=== PATIENT | female | born 1970 | race Caucasian/White ===

== ENCOUNTER 2023-12-14 13:46 | Outpatient (AMB) | payer BC, SELFPAY ==
--- NOTE | 2023-12-14 14:12 | A.OFFVIS_ITS ---
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 Patient reports that her right knee is worse than the left. Patient has tired and failed gel injections with minimal re lief. She expresses that she has done P.T and cortisone injections with no relief. Patient would like to discuss surgery and would like to start with her right knee. 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 While in the office today the patient confirms a history of trial and failure of cortisone injections, gel injections, and physical therapy. She states the gel injections gave her minimal relief for a short period of time. However, the cortisone injections and physical therapy gave her no relief. Patient reports she was working every other day and now works daily. This has caused an increase in her pain. She states she stands on her feet for most of her shift. She reports due to this issue she obtained a work note giving her permission to sit as often as needed. She states she can walk around 20 minutes, but this increases pain. She also reports struggling with stairs. She states she is no longer able to attend the gym due to pain in the bilateral knees. Patient has a history of cortisone injections in the right knee in 2019 and a left knee cortisone injection in 2020. Patient confirmed Bariatric surgery 1.5 years ago. She confirms losing 100 pounds since the procedure. Patient confirms being 5 foot 4 inches tall and weighing 225 pounds.BMI as of 12/14/2023 is 38.6. [facility] Social History (Updated 12/14/23 @ 14:17 by Slim Mendes) Alcohol intake: current Alcohol intake frequency: holidays/special occasions only Patient Tobacco Use Status: Former Tobacco user Current occupational status: employed Current occupation: [employer] Review of Systems Const All systems reviewed & are unremarkable except as noted in HPI and below Physical Exam Vital Signs: BMI result Body Mass Index 38.6 Const General: cooperative and no acute distress Orientation/consciousness: patient oriented x3 and Other orientation findings (oriented) Resp Effort & Inspection: normal respiratory effort and able to speak in complete sentences Cardio Rate: regular rate Peripheral pulses: Peripheral pulses 2+ throughout GI Palpation (GI): Soft to palpation Skin General skin exam: no rashes or lesions noted Lesions: no lesions Rashes: no rashes Neuro General: patient oriented x3 Extrem Other: Right knee: Normal to inspection. No ecchymosis, erythema, or joint effusion. No tenderness to palpation along the medial or lateral joint lines. Lacking 10 degrees of forward extension. Flexion to 90 degrees. Crepitus felt with ROM. NVI. Assessment & Plan Assessment & Plan (1) Osteoarthritis of right knee: Code(s): M17.11 - Unilateral primary osteoarthritis, right knee Category: Medical (2) Osteoarthritis of left knee: Code(s): M17.12 - Unilateral primary osteoarthritis, left knee Category: Medical Plan Ms. Suarez is a 53-year-old female who presents in the office today, as a new patient, for an evaluation of bilateral knee pain; with the right knee being worse than the left knee. While in the office today the patient confirms a history of trial and failure of cortisone injections, gel injections, and physical therapy. She states the gel injections gave her minimal relief for a short period of time. However, the cortisone injections and physical therapy gave her no relief. Patient reports she was working every other day and now works daily. This has caused an increase in her pain. She states she stands on her feet for most of her shift. She reports due to this issue she obtained a work note giving her permission to sit as often as needed. She states she can walk around 20 minutes, but this increases pain. She also reports struggling with stairs. She states she is no longer able to attend the gym due to pain in the bilateral knees. Patient has a history of cortisone injections in the right knee in 2019 and a left knee cortisone injection in 2020. Patient confirmed Bariatric surgery 1.5 years ago. She confirms losing 100 pounds since the procedure. Patient confirms being 5 foot 4 inches tall and weighing 225 pounds. BMI as of 12/14/[address] Freeman was available to see the patient with me and a collaborative treatment plan was made. It was discussed and recommended for the patient to undergo a right total knee arthroplasty. We discussed in detail the procedure and what to expect pre and post operatively. We discussed the risks, benefits and alternatives to the surgery and the rehabilitation course. The risks include infection, bleeding, nerve injury, ongoing pain, swelling, and stiffness, perioperative risk of injury to bones and soft tissues, and blood clots. The patient?s information was given to the Nurse Navigator. Follow up will be with the Nurse Navigator for further surgical planning and clearance, or sooner if needed. X-rays of the right knee which were obtained while in the office today and were reviewed by me, Sona Espinoza PA-C, revealed osteoarthritis. X-rays of the right knee, obtained 01/30/2022, revealed: Moderate to severe osteoarthritic changes in the right knee, with severe joint space narrowing of the medial joint compartment with slight subchondral sclerosis and cortical irregularity, worse as comparted to the prior study from 2020. MRI of the left knee, obtained on 01/30/2022, revealed: 1. Tricompartmental osteoarthritis advanced in the medial tibiofemoral compartment. Associated subchondral bony edema. 2.Complex degenerative tear posterior two thirds of the medial meniscus with [id number] appearance of the discal body. 3. Small partially ruptured Jalloh?s cyst 4. Small-volume pes anserine bursitis. X-rays of the left knee, obtained on 05/14/2021, revealed: Mild arthritic changes, but no acute fracture or dislocation. Orders: Orders XR knee RT 3V 12/14/23 M25.569 - Pain in unspecified knee Patient Instructions: Scribed by Carole Olemdo medical delivery technician, for Sona Espinoza PA-C on 12/14/2023 at 02:30 p.m. EST. Corrections were made by Beatris Felton medical delivery technician, on 12/14/2023 at 5:37pm, EST. Coding Level of Care Code New Pt Level 4 (22159) Diagnoses Osteoarthritis of right knee M17.11 Osteoarthritis of left knee M17.12
[2023-12-14 14:17] VITALS: BMI 38.6
== END 2023-12-14 15:31 | disposition home or self-care (01) ==
PROVIDERS: Visit Provider Physician Assistant
DX: M17.0 Bilateral primary osteoarthritis of knee (principal)
CPT/HCPCS: 99204

== ENCOUNTER 2023-12-14 14:36 | Outpatient (REF) | payer BC, SELFPAY ==
--- NOTE | ~2023-12-14 | XR_ITS ---
EXAMINATION: XR BILATERALLY KNEES CLINICAL INFORMATION: Pain in unspecified knee. TECHNIQUE: AP standing, lateral and sunrise views of bilateral knees. COMPARISON: None available. FINDINGS: LEFT KNEE: Trace joint effusion. Vtnjrdlk-ij-pdypzw narrowing of the medial compartment with prominent medial marginal osteophytes. Small lateral posterior patellar osteophytes. RIGHT KNEE: Trace joint effusion. Ygrfmhkq-cv-hzqeua narrowing of the medial compartment with prominent medial marginal osteophytes. Degenerative changes with posterior hypertrophic change in the right patellofemoral compartment. XR/XR knee LT 3V IMPRESSION: Ldzlignc-gw-vtdzaq degenerative changes bilateral knees.
--- NOTE | ~2023-12-14 | XR_ITS ---
EXAMINATION: XR BILATERALLY KNEES CLINICAL INFORMATION: Pain in unspecified knee. TECHNIQUE: AP standing, lateral and sunrise views of bilateral knees. COMPARISON: None available. FINDINGS: LEFT KNEE: Trace joint effusion. Aanmgchr-qd-bythtc narrowing of the medial compartment with prominent medial marginal osteophytes. Small lateral posterior patellar osteophytes. RIGHT KNEE: Trace joint effusion. Qcrqbjtl-vi-vxxlup narrowing of the medial compartment with prominent medial marginal osteophytes. Degenerative changes with posterior hypertrophic change in the right patellofemoral compartment. XR/XR knee RT 3V IMPRESSION: Eklrmsmq-ji-hoaeln degenerative changes bilateral knees.
== END 2023-12-14 14:37 | disposition home or self-care (01) ==
LOC: HO.HOSX 14:36
PROVIDERS: Visit Provider Physician Assistant
DX: M25.561 Pain in right knee (principal); M25.562 Pain in left knee
CPT/HCPCS: 73562

== ENCOUNTER → 2024-04-25 08:42 | Outpatient (BNVA) | payer BC, SELFPAY | DX: Z01.818 Encounter for other preprocedural examination (principal) ==

== ENCOUNTER 2024-04-28 13:37 | Outpatient (REF) | payer BC, SELFPAY ==
[2024-04-28 13:55] LABS: MANUAL DIFF FLAG NO
[2024-04-28 14:11] LABS: Basophils Absolute Auto 0.1 X10*3/uL (0.0-0.2); Basophils Percent Auto 0.6 % (0-2); Eosinophils Absolute Auto 0.3 X10*3/uL (0.0-0.4); Eosinophils Percent Auto 4.1 % (0-4); Hemoglobin 13.4 g/dl (12.0-16.0); Imm Gran Abs Auto 0.02 X10*3/uL (0.00-0.03); Imm Gran Pct Auto 0.2 % (0.0-0.4); Lymphocytes Absolute Auto 1.7 X10*3/uL (1.2-4.9); Lymphocytes Percent Auto 20.9 % (20-40); Mean Corpuscular HGB Conc 33.5 g/dl (31.0-35.0); Mean Corpuscular Hemoglobin 30.3 pg (27.0-33.0); Mean Corpuscular Volume 90.5 fL (80.0-98.0); Mean Platelet Volume 9.3 fL (9.4-12.3); Monocytes Absolute Auto 0.6 X10*3/uL (0.1-1.2); Monocytes Percent Auto 7.7 % (2-11); Neutrophils Absolute Auto 5.5 x10*3/uL (2.0-8.3); Neutrophils Percent Auto 66.5 % (45-73); Platelet Count 328 X10*3/uL (160-400); Red Blood Count 4.42 X10*6/uL (4.20-5.50); Red Cell Distribution Width 12.9 % (11.0-16.0); White Blood Count 8.3 X10*3/uL (4.8-10.8)
[2024-04-28 14:19] LABS: Estimated Average Glucose 100 mg/dL; Hemoglobin A1C 110.8537 umol/L; Hemoglobin A1c % 5.1 % (<6.0); Total Hemoglobin (HGBA1C) 3388.8152 umol/L
== END 2024-04-28 13:38 | disposition home or self-care (01) ==
LOC: HO.LAB 13:37
PROVIDERS: Visit Provider Hospitalist
DX: Z01.812 Encounter for preprocedural laboratory examination (principal); Z13.1 Encounter for screening for diabetes mellitus
CPT/HCPCS: 36415; 83036; 85025

== ENCOUNTER 2024-05-16 10:07 | Outpatient (REF) | payer BC, SELFPAY | END 2024-05-16 10:08 | disposition home or self-care (01) | LOC: HO.HOSX 10:07 | PROVIDERS: Visit Provider Physician Assistant | DX: Z13.89 Encounter for screening for other disorder (principal) ==

== ENCOUNTER → 2024-05-16 14:41 | Outpatient (BNV) | payer BC, SELFPAY | PROVIDERS: Visit Provider Internal Medicine Cardiovascular Disease | DX: R00.1 Bradycardia, unspecified (principal) | CPT/HCPCS: 93010 ==

== ENCOUNTER 2024-05-19 14:39 | Outpatient (REF) | payer BC, SELFPAY | END 2024-05-19 14:40 | disposition home or self-care (01) | LOC: HO.HOSX 14:39 | PROVIDERS: Visit Provider Physician Assistant | DX: M25.569 Pain in unspecified knee (principal) | CPT/HCPCS: 73560; 73562 ==

== ENCOUNTER 2024-05-19 14:39 | Outpatient (AMB) | payer BC, SELFPAY ==
--- NOTE | 2024-05-19 14:58 | A.OFFVIS_ITS ---
Intake Visit Reasons: Pre-Op: R TKA w/NE 05/25/24 Intake Note: Che is a 54 year old female who presents today for a pre op appointment for her Right TKA 05/25/24 NE. Pain management agreement reviewed and signed. Allergies gluten Allergy (Severe, Verified 05/19/24 14:59) Gastrointestinal Upset HPI HPI Pre-Op: R TKA w/NE 05/25/24: Details: 54-year-old female who presents in the office today for her preoperative history and physical exam prior to a right total knee arthroplasty to be performed on 05/25/[address] Freeman. The patient reports her pain is limiting her daily acti vities. She has tried and failed all conservative treatments. Therefore, she has elected to proceed with a right total knee arthroplasty. Patient has an allergy history, as follows: -Gluten; Gastrointestinal upset. Patient is currently taking, as follows: -Omeprazole magnesium 20 mg PO daily. Patient has a medical history, as follows: -Celiac disease. -GERD -LASHAE; not on CPAP. -History of postoperative nausea Patient has a surgical history, as follows: -Hx of colonoscopy. -Hx of foot surgery, bilateral bone spur in 1994. -Hx of ventral hernia repair; post op nausea in 2013. -Hx of bariatric surgery; gastric sleeve in 2021. Patient has a social history, as follows: -Tobacco: Former cigarette user. [facility] Medical History (Updated 05/16/24 @ 14:20 by Joycelyn Hess RN) Arthritis Celiac disease GERD (gastroesophageal reflux disease) LASHAE (obstructive sleep apnea) History of postoperative nausea Surgical History Hx of colonoscopy Hx of foot surgery (~1994) Hx of ventral hernia repair (~2013) Hx of bariatric surgery (~2021) Social History Household Members: Family Housing: House Are you a primary mall plant caretaker to a significant other at home: No Do you presently have visiting nurse or other home services: No Alcohol intake: current Alcohol intake frequency: holidays/special occasions only Patient Tobacco Use Status: Former Tobacco user Tobacco use type: Cigarette Current occupational status: employed Current occupation: [employer] Review of Systems Const All systems reviewed & are unremarkable except as noted in HPI and below Physical Exam Const General: cooperative, healthy appearing, comfortable, no acute distress, well developed, alert and awake Orientation/consciousness: patient oriented x3 HEENT Head: Yes normal to inspection, Yes normocephalic and Yes atraumatic Eyes General: appearance normal, both eyes and all related structures Neck Neck: Yes normal visual inspection and Yes no lymphadenopathy Resp Effort & Inspection: normal respiratory effort and able to speak in complete sentences Cardio Rate: regular rate Peripheral pulses: Peripheral pulses 2+ throughout GI Inspection: Yes normal to inspection Palpation (GI): Soft to palpation Skin General skin exam: no rashes or lesions noted Neuro General: patient oriented x3 Extrem Other: Right knee: Normal to inspection. No ecchymosis, erythema, or joint effusion. No tenderness to palpation along the medial or lateral joint lines. Lacking 10 degrees of forward extension. Flexion to 90 degrees. Crepitus felt with ROM. NVI. Psych Mental Status: mental status grossly normal Assessment & Plan Assessment & Plan (1) Osteoarthritis of right knee: Code(s): M17.11 - Unilateral primary osteoarthritis, right knee Category: Medical Plan Ms. Adolfo Suarez is a 54-year-old female who presents in the office today for her preoperative history and physical exam prior to a right total knee arthroplasty to be performed on 05/25/[address] Freeman. The patient reports her pain is limiting her daily activities. She has tried and failed all conservative treatments. Therefore, she has elected to proceed with a right total knee arthroplasty. Patient has an allergy history, as follows: -Gluten; Gastrointestinal upset. Patient is currently taking, as follows: -Omeprazole magnesium 20 mg PO daily. Patient has a medical history, as follows: -Celiac disease. -GERD -LASHAE; not on CPAP. -History of postoperative nausea. Patient has a surgical history, as follows: -Hx of colonoscopy. -Hx of foot surgery, bilateral bone spur in 1994. -Hx of ventral hernia repair; post op nausea in 2013. -Hx of bariatric surgery; gastric sleeve in 2021. Patient has a social history, as follows: -Tobacco: Former cigarette user. I discussed in detail the procedure and what to expect pre and post operatively. We discussed the risks, benefits and alternatives to the surgery and the rehabilitation course. The risks include infection, bleeding, nerve injury, ongoing pain, swelling, and stiffness, perioperative risk of injury to bones and soft tissues, and blood clots. I have answered all questions and with their understanding they have consented to move forward with a right total knee arthroplasty to be performed on 05/25/[address] Freeman. We discussed the role of physical therapy postoperatively. The patient would like to attend an outpatient physical therapy office that is closer to her home. She was provided with a paper copy of the physical therapy prescription to go to any facility she wished to attend. She should plan on beginning outpatient therapy 2 weeks status post surgery. Follow up will be on 06/10/24, or sooner if needed. X-rays of the right knee, which were obtained while in the office today and were reviewed by , Sona Espinoza PA-C, revealed: preoperative films obtained. Orders: Orders XR knee LT 1V 05/19/24 Kamari Garcia PA-C M25.569 - Pain in unspecified knee XR knee RT 3V 05/19/24 Kamari Garcia PA-C M25.569 - Pain in unspecified knee PT Evaluation and Treatment 05/19/24 Sona Espinoza PA-C M17.11 - Unilateral primary osteoarthritis, right knee Patient Instructions: Scribed by Rosibel Gomez, emergency medical dispatcher, for Sona Espinoza PA-C on 05/19/24 at 3:20 pm EST. Coding Level of Care Code Global (30110) Diagnoses Osteoarthritis of right knee M17.11
== END 2024-05-19 15:20 | disposition home or self-care (01) ==
PROVIDERS: Visit Provider Physician Assistant
DX: M17.11 Unilateral primary osteoarthritis, right knee (principal)
CPT/HCPCS: 99024

== ENCOUNTER 2024-05-25 07:22 | Day surgery (SDC) | payer BC, SELFPAY ==
--- NOTE | 2024-05-16 | ECG_ITS ---
Test Reason : PREOP Blood Pressure : / mmHG Vent. Rate : 058 BPM Atrial Rate : 058 BPM P-R Int : 160 ms QRS Dur : 088 ms QT Int : 400 ms P-R-T Axes : 040 046 034 degrees QTc Int : 392 ms Sinus bradycardia Otherwise normal ECG No previous ECGs available Referred By: Naya Hicks Electronically Signed By:Jagdish Nix
[2024-05-16 14:05] VITALS: BP 142/88; PULSE 65; RESP 16; O2SAT 99; BMI 40.0
--- NOTE | 2024-05-16 14:25 | HO.ANESPROP2 ---
Documented by User: Naya Hicks NP 05/24/24 08:57 HPI - Anesthesia Eval Consult details Narrative: 54yo F for Right Knee Replacement Total, 05/25/24 No recent illness No CP/SOB with yard work, work at [employer] GERD: ppi controls LASHAE: no CPAP after 120lb weight loss in 2 years PONV: 1 x postop hernia (severe nausea only). Discussed low risk PONV with TKA PMFSH Active Problems Active Problems: All Active Problems Osteoarthritis of left knee (Acute) Osteoarthritis of right knee (Acute) Past Medical History Medical History (Updated 05/16/24 @ 14:20 by Joycelyn Hess, RN) Arthritis Celiac disease GERD (gastroesophageal reflux disease) LASHAE (obstructive sleep apnea) History of postoperative nausea Family History Family history of problems with anesthesia: No Surgical History Surgical History Hx of colonoscopy Hx of foot surgery (~1994) Hx of ventral hernia repair (~2013) Hx of bariatric surgery (~2021) History of Problems with Anesthesia: Yes (PONV) Social History Social History Household Members: Family Housing: House Are you a primary foster care worker to a significant other at home: No Do you presently have visiting nurse or other home services: No Alcohol intake: current Alcohol intake frequency: holidays/special occasions only Patient Tobacco Use Status: Former Tobacco user Tobacco use type: Cigarette Smoked in Last 30 Days: No Have you been hit, kicked, punched, or otherwise hurt by someone within the past year? If so, by whom?: No Are you DNR?: No Advance Directives: No Advance Directives Information Provided: Yes Advance Directives on File: No Recently lost weight without trying: No Nutrition Risks: No Nutritional Risk Current occupational status: employed Current occupation: [employer] Allergies Allergy/AdvReac Type Severity Reaction Status Date / Time gluten Allergy Severe Gastrointestinal Verified 05/25/24 08:14 Upset Home Medications ?Medication ?Instructions ?Recorded ?Confirmed ?Last Taken ?Type omeprazole magnesium 20 mg 20 mg PO DAILY 12/14/23 05/25/24 05/25/24 06:45 History tablet,delayed release (Prilosec OTC) Exam Height,Weight and Vital Signs: Height 5 ft 4 in Weight 105.7 kg Last Vital Signs Pulse 65 05/16/24 14:05 Resp 16 05/16/24 14:05 BP 142/88 H 05/16/24 14:05 Pulse Ox 99 05/16/24 14:05 O2 Del Method Room Air 05/16/24 14:05 Pertinent Lab Results Pertinent Lab Results: Laboratory Tests 04/28/24 13:55 WBC 8.3 Hgb 13.4 Hct 40.0 Plt Count 328 Hemoglobin A1c % 5.1 Lab Results 05/16/24 05/16/24 05/16/24 Range/Units 14:30 15:05 Unknown Sodium 141 (135-145) mmol/L Potassium 4.5 (3.3-5.1) mmol/L Chloride 107 (96-108) mmol/L Carbon Dioxide 27 (22-29) mmol/L Anion Gap 12 (12-20) BUN 27 H (9-16) mg/dL Creatinine 0.88 (0.5-1.4) mg/dL Estim Creat Clear Calc 84.6 Estimated GFR > 60 Random Glucose 104 (60-115) mg/dL Calcium 9.7 (8.4-10.2) mg/dL Nasal Screen MRSA (PCR) NEGATIVE (Negative) Nasal S. aureus Screen POSITIVE A (Negative) Nasal MRSA/S.aureus Interp SEE NOTE Blood Type O Positive Antibody Screen NEGATIVE Narrative Narrative: EKG 04/2024 Vent. Rate : 058 BPM Atrial Rate : 058 BPM P-R Int : 160 ms QRS Dur : 088 ms QT Int : 400 ms P-R-T Axes : 040 046 034 degrees QTc Int : 392 ms Sinus bradycardia Otherwise normal ECG No previous ECGs available Airway Mallampati Class: I TM Dist: >3cm Neck ROM: Full Loose/Missing/Broken Teeth: Yes (molar missing, molars crowned) Heart: RRR Lungs: CTAB Assessment and Plan Assessment Anesthesia Assessment: Anesthesia Plan Discussed and PAT Visit Final Anesthetic Review Family History of Problems with Anesthesia: No History of Problems with Anesthesia: Yes (PONV) Documented by User: Ailyn Sumner MD 05/25/24 08:36 [facility] Past Medical History Medical History (Updated 05/16/24 @ 14:20 by Joycelyn Hess RN) Arthritis Celiac disease GERD (gastroesophageal reflux disease) LASHAE (obstructive sleep apnea) History of postoperative nausea Surgical History Surgical History Hx of colonoscopy Hx of foot surgery (~1994) Hx of ventral hernia repair (~2013) Hx of bariatric surgery (~2021) Social History Social History Household Members: Family Housing: House Are you a primary foster care worker to a significant other at home: No Do you presently have visiting nurse or other home services: No Alcohol intake: current Alcohol intake frequency: holidays/special occasions only Patient Tobacco Use Status: Former Tobacco user Tobacco use type: Cigarette Smoked in Last 30 Days: No Have you been hit, kicked, punched, or otherwise hurt by someone within the past year? If so, by whom?: No Are you DNR?: No Advance Directives: No Advance Directives Information Provided: Yes Advance Directives on File: No Recently lost weight without trying: No Nutrition Risks: No Nutritional Risk Current occupational status: employed Current occupation: [employer] Allergies Allergy/AdvReac Type Severity Reaction Status Date / Time gluten Allergy Severe Gastrointestinal Verified 05/25/24 08:14 Upset Home Medications ?Medication ?Instructions ?Recorded ?Confirmed ?Last Taken ?Type omeprazole magnesium 20 mg 20 mg PO DAILY 12/14/23 05/25/24 05/25/24 06:45 History tablet,delayed release (Prilosec OTC) Assessment and Plan Final Anesthetic Review NPO: Yes ASA Class: II Final Preanesthetic Review: No Changes in Pt Med Stat, Meds/Allgs Chart Reviewed and Consent Obtained/Reviewed Patient Risk: Intermediate Procedure Risk: Intermediate Anesthetic Plan Anesthetic Plan: Spinal Disposition: Standard PACU
[2024-05-16 16:14] LABS: MRSA Nasal PCR NEGATIVE (Negative); SA Nasal PCR POSITIVE (Negative)
[2024-05-16 16:42] LABS: Anion Gap 12 (12-20); Blood Urea Nitrogen 27 mg/dL (9-16); Calcium 9.7 mg/dL (8.4-10.2); Carbon Dioxide 27 mmol/L (22-29); Chloride 107 mmol/L (96-108); Creatinine Clr Calc Pharmacy 84.6; Estimated Glomerular Filt Rate > 60; Glucose Random 104 mg/dL (60-115); Potassium 4.5 mmol/L (3.3-5.1); Sodium 141 mmol/L (135-145)
[2024-05-25] VITALS (14 sets, daily range): BP systolic 105–141; BP diastolic 54–97; PULSE 51–73; RESP 14–20; TEMP 36.1–36.9; O2SAT 97–100; BMI 39.3; BMI 41.1
--- NOTE | ~2024-05-25 | XR_ITS ---
EXAMINATION: XR KNEE, RIGHT CLINICAL INFORMATION: Status post right total knee arthroplasty COMPARISON: X-rays of the right knee May 19, 2024 TECHNIQUE: Postop AP and crosstable lateral views of the right knee FINDINGS: There is a total knee arthroplasty in place. The components are in the usual position and are unchanged. There is no periprosthetic fracture There is some gas/air within the joint and surrounding soft tissues compatible with postoperative result. Skin tata are in place. XR/XR knee RT 2V IMPRESSION: Right total knee arthroplasty without complication by x-ray. Electronically signed by: Zeyad Gandhi MD 05/26/2024 09:19 AM EDT
[2024-05-25] MEDS: Lactated Ringers 1,000 ML 100 ML IVCONT ×2 (08:40→18:09)
[2024-05-25 09:03] LABS: Hematocrit 42.6 % (37.0-47.0)
--- NOTE | 2024-05-25 11:25 | MHC.SHP ---
Pre-Procedural Eval Section A - 24 Hr Update-Section A only Date of Service: 05/25/24 The patient is an INPATIENT: No Changes since office visit: No Cold of Flu in the past 2 weeks, No New Medical Problems, No Changes in Medication and No Patient answered all questions The patient has been examined within 24 hours of the surgical procedure. The History & Physical has been completed within 30 days and I have reviewed it.: Yes Section B - Complete if H&P > 30 days Chief Complaint: Unilateral primary osteoarthritis, right knee Allergies: Allergies Allergy/AdvReac Type Severity Reaction Status Date / Time gluten Allergy Severe Gastrointestinal Verified 05/25/24 08:14 Upset Plan I have reviewed the history and physical and performed a pertinent physical examination on my patient. No changes have occurred unless specified. Time Spent With Patient Time: Total time managing care of this patient today ____ minutes.
[2024-05-25] MEDS: ceFAZolin Sodium/Dextrose,Iso 2 GM/50 ML PIGGYBACK IV ×2 (11:50→18:07)
[2024-05-25] MEDS: Acetaminophen 1,000 MG/100 ML PIGGYBACK 400 MG IV (12:30)
--- NOTE | 2024-05-25 13:13 | PM.OP ---
Brief Operative Note Date of Service: 05/25/24 Pre-op diagnosis: right knee OA Post-op diagnosis: same Procedure: Right TKA Implants: Francesco Triathlon press fit cruciate retaining 09/28/11 Surgeon: Pepe Freeman MD Anesthesia: GETA and regional Was an Drill Rig Operator Helper used for this Procedure?: Yes Drill Rig Operator Helper: Sona Espinoza Estimated blood loss (mL): 50 Tourniquet time (min): 70 IV fluids (mL): 1,000 Pathology: other Condition: stable Disposition: PACU
--- NOTE | 2024-05-25 13:31 | PHA.MEDREC ---
Pharmacy Consult ? Medication Reconciliation Pharmacy has completed the medication reconciliation. Reviewed med rec done by nursing
[2024-05-25] MEDS: oxyCODONE HCl Immed Release 5 MG TABLET PO (17:05)
[2024-05-25] MEDS: HYDROmorphone HCl 0.5 MG/0.5 ML SYRINGE 0.25 MG IVPUSH (18:07)
[2024-05-25] MEDS: 0.9 % Sodium Chloride Flush 3 ML SYRINGE IVFLUSH (18:09)
[2024-05-25] MEDS: oxyCODONE HCl ER 10 MG TAB.ER.12H PO (20:48)
[2024-05-25] MEDS: Celecoxib 200 MG CAPSULE PO (20:48)
[2024-05-26 03:36] VITALS: BP 128/62; PULSE 68; RESP 18; TEMP 36.4; O2SAT 95
[2024-05-26] MEDS: Omeprazole 20 MG CAPSULE.DR PO (05:44)
[2024-05-26] MEDS: Lactated Ringers 1,000 ML 100 ML IVCONT (05:44)
[2024-05-26] MEDS: HYDROmorphone HCl 0.5 MG/0.5 ML SYRINGE 0.25 MG IVPUSH (05:44)
[2024-05-26 06:33] LABS: MANUAL DIFF FLAG NO
[2024-05-26 06:59] LABS: Anion Gap 13 (12-20); Blood Urea Nitrogen 19 mg/dL (9-16); Carbon Dioxide 26 mmol/L (22-29); Chloride 106 mmol/L (96-108); Creatinine Clr Calc Pharmacy 100.8; Estimated Glomerular Filt Rate > 60; Glucose Fasting 127 mg/dL (60-99); Potassium 4.7 mmol/L (3.3-5.1); Sodium 140 mmol/L (135-145)
[2024-05-26 07:07] LABS: Basophils Percent Auto 0.1 % (0-2); Eosinophils Percent Auto 0.1 % (0-4); Hematocrit 37.1 % (37.0-47.0); Hemoglobin 12.6 g/dl (12.0-16.0); Imm Gran Abs Auto 0.05 X10*3/uL (0.00-0.03); Imm Gran Pct Auto 0.5 % (0.0-0.4); Lymphocytes Percent Auto 9.6 % (20-40); Mean Corpuscular Hemoglobin 30.7 pg (27.0-33.0); Mean Corpuscular Volume 90.3 fL (80.0-98.0); Monocytes Absolute Auto 1.2 X10*3/uL (0.1-1.2); Monocytes Percent Auto 11.2 % (2-11); Neutrophils Absolute Auto 8.6 x10*3/uL (2.0-8.3); Neutrophils Percent Auto 78.5 % (45-73); Platelet Count 301 X10*3/uL (160-400); Red Blood Count 4.11 X10*6/uL (4.20-5.50); Red Cell Distribution Width 13.1 % (11.0-16.0); White Blood Count 10.9 X10*3/uL (4.8-10.8)
[2024-05-26 07:20] VITALS: BP 144/72; PULSE 64; RESP 14; TEMP 37.4; O2SAT 96
--- NOTE | 2024-05-26 08:15 | HO.POSTANES ---
Post Anesthesia Evaluation Post Anesthesia Evaluation Date of Service: 05/26/24 Vital Signs: Vital Signs Temp Pulse Resp BP Pulse Ox O2 Del Method 05/26/24 07:20 99.3 F 64 14 144/72 H 96 Room Air 05/26/24 03:36 97.6 F 68 18 128/62 95 Room Air Anesthesia: Spinal Mental Status: Awake Pain Control: Satisfactory Nausea/Vomiting: None Hydration: Adequate Anesthesia-Related Issues: No Anes. Related Issues
[2024-05-26] MEDS: Celecoxib 200 MG CAPSULE PO (08:21)
[2024-05-26] MEDS: oxyCODONE HCl ER 10 MG TAB.ER.12H PO (08:21)
[2024-05-26] MEDS: 0.9 % Sodium Chloride Flush 3 ML SYRINGE IVFLUSH (08:22)
--- NOTE | 2024-05-26 09:06 | P.DS_ITS ---
DS: Providers Provider Date of Service: 05/26/24 Primary care physician: Unknown Physician DS: Summary Hospital Course Hospital Course: The patient underwent a successful right total knee arthroplasty on 05/25/24, was transferred to PACU and then to the floor to recover. During their stay, their vitals were stable, afebrile at 12.6/37.1. Labs were unremarkable, H/H . POD 1 he was started on for DVT ppx, they also received Physical Therapy services twice a day. Physical therapy should include gait training, ROM to tolerance and quad strength. He is WBAT. Prior to discharge, his dressing was changed, incision clean dry and intact, new Aquacel dressing applied. The Aquacel dressing should remain intact and dry at all times. Any concerns with the dressing, please contact orthopedic office. No showering. The plan is to be discharged Time Attestation Discharge Coordination Time (in mins): 30 Quality: Safe Use of Opioids Does Pt have an Active Cancer Diagnosis on the Problem List?: No Quality: Stroke Does the patient have a stroke diagnosis?: No Physical Exam Vital Signs: Vital Signs: Last Vital Signs Temp 99.3 F 05/26/24 07:20 Pulse 64 05/26/24 07:20 Resp 14 05/26/24 07:20 BP 144/72 H 05/26/24 07:20 Pulse Ox 96 05/26/24 07:20 O2 Del Method Room Air 05/26/24 07:20 BMI result Body Mass Index 41.1 Const: General: cooperative and no acute distress Orientation/co nsciousness: patient oriented x3 Resp: Effort & Inspection: normal respiratory effort and able to speak in complete sentences Cardio: Peripheral pulses: Peripheral pulses 2+ throughout Neuro: General: patient oriented x3 Extrem: Other: incision clean dry and intact. Kenzie intact. No erythema or joint effusion. Calf supple nontender. Neurovascularly intact. DS: Data Data Completed and Pending Pending studies at discharge: Pending at discharge 05/25/24 12:35 Surgical [PTH] Routine Labs on day of discharge: Laboratory Results - last 24 hr 05/26/24 05:47 WBC 10.9 H RBC 4.11 L Hgb 12.6 Hct 37.1 MCV 90.3 MCH 30.7 MCHC 34.0 RDW 13.1 Plt Count 301 MPV 10.0 Immature Gran % (Auto) 0.5 H Neut % (Auto) 78.5 H Lymph % (Auto) 9.6 L [place] % (Auto) 11.2 H Eos % (Auto) 0.1 Baso % (Auto) 0.1 Lymph # (Auto) 1.0 L [place] # (Auto) 1.2 Eos # (Auto) 0.0 Baso # (Auto) 0.0 Abs Immat Gran (auto) 0.05 H Absolute Neuts (auto) 8.6 H Absolute Nucleated RBC 0.000 Nucleated RBC % (auto) 0.0 Sodium 140 Potassium 4.7 Chloride 106 Carbon Dioxide 26 Anion Gap 13 BUN 19 H Creatinine 0.75 Estim Creat Clear Calc 100.8 Estimated GFR > 60 Fasting Glucose 127 H Calcium 9.0 D Discharge Plan Discharge Patient Disposition: Home, Self-Care Referrals: oSna Espinoza PA-C [Physician [employer]ated [employer] Driver] - 2 Weeks (06/10/24 1:15 [facility] [place] Orthopedic Surgeons Sona Espinoza PA-C) Discharge Medications: New celecoxib 200 mg Capsule 200 mg PO BID 30 Days Qty: 60 0RF oxycodone 5 mg Tablet 5 mg PO Q4H PRN (Reason: Pain, Moderate(Pain Scale 4-6)) 7 Days Qty: 42 0RF Rx Instructions: Partial Fill upon patient request. acetaminophen 325 mg Tablet 650 mg PO Q6H PRN (Reason: Pain, Mild (Pain Scale 1-3), fever or headache) 30 Days Qty: 240 0RF enoxaparin 40 mg/0.4 mL Syringe 40 mg subcut Q24H 42 Days Qty: 16.8 0RF Continued (DME) walker Misc See Rx Instructions .ROUTE .MEDSUPPLY Qty: 1 0RF Rx Instructions: Folding front wheeled walker omeprazole magnesium [Prilosec OTC] 20 mg tablet,delayed release (DR/EC) 20 mg PO DAILY@0630 Discharge Orders: Discharge Order (Routine); Ordered 05/26/24 Ordered By: Kamari Garcia Diet: Regular diet Activity on Discharge: Use cane or walker Activity Restrictions/Additional Instructions: Physical Therapy for Total knee arthroplasty: WBAT, gait training, ROM 0-12, quad strength * Limit stair climbing * No showering, no tub bath-keep dressing clean, dry and intact * No driving x6 weeks * Continue lovenox once a day x 6 weeks * Follow up with [facility] Orthopedics in 2 weeks: Print Language: Citizen Of [place]
--- NOTE | 2024-05-26 09:16 | P.F2F_ITS ---
Service Date Service Date: 05/26/24 Encounter Date of encounter: 05/26/24 Reasons for Services Signs and symptoms assessed: Weakness, poor balance, poor gait mechanics Reason for physical therapy: home safety and mobility, therapeutic exercises, restore joint function, gait/transfer training, ADL training and energy conservation Overseeing Care: Pepe Freeman Homebound: Leaving the home is medically contraindicated at this time without the asist of a device and/or another person due th the listed conditions above and below. Reason homebound: unsteady gait / fall risk, pain with ambulation, poor balance / fall risk and unable to drive Homebound supporting statement: Pt. is considered home bound due to recent surgery. Unable to drive, poor balance, poor gait mechanics. Certification: Based on the above findings, I certify that this patient is confined to the home and needs intermittent half-way care, physical therapy and/or speech therapy, or continues to need occupational therapy. The patient is under my care, and I have initiated the establishment of the plan of care. The patient will be followed by a physician who will periodically review the plan of care. Time Spent With Patient Time: Total time managing care of this patient today ____ minutes.
[2024-05-26] MEDS: Enoxaparin Sodium 40 MG/0.4 ML SYRINGE SUBCUT (09:36)
--- NOTE | 2024-05-26 09:52 | MHC.CM.PN ---
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
--- NOTE | 2024-05-27 16:38 | W.PM.OPN ---
Operative Note Operative Note Date of Service: 05/25/24 Narrative: Date of Service: 05/25/24 Pre-op diagnosis: right knee OA Post-op diagnosis: same Procedure: Right TKA Implants: [place] Triathlon press fit cruciate retaining 09/28/1129 Surgeon: Pepe Freeman MD Anesthesia: GETA and regional Was an Medical Services Assistant used for this Procedure?: Yes Medical Services Assistant: Sona Espinoza Estimated blood loss (mL): 50 Tourniquet time (min): 70 IV fluids (mL): 1,000 Pathology: other Condition: stable Disposition: PACU Procedure in detail: The patient was brought to the operating room and prepped and draped in standard sterile fashion. A time-out was called to identify proper site proper procedure proper surgeon and IV antibiotics were administered. 1 g of IV tranexamic acid was administered. I began by making a midline incision to the retinaculum and performed a medial parapatellar arthrotomy. The patella was translated laterally and the knee was flexed up. The knee was eburnated tricompartmentally but most affected was the medial compartment.. I performed a small medial peel and resected the infrapatellar fat pad. Evan's line was then used to drill my intramedullary femoral guide and my distal femur cut of 10 mm was made in 5 degrees of valgus while protecting the soft tissues. I then measured a # 3 femur femur and placed my cutting guide and made my anterior posterior and chamfer cuts in 3 degrees of external rotation while protecting the soft tissues at all times. Once I was satisfied with my cuts I turned my attention to the tibia. I removed the meniscus medially and laterally and , using an external cutting guide, in line with the tibial crest and the third ray, I made my distal tibial cut in 3 deg slope of while protecting the PCL the posterior soft tissues at all times. An extension block was used to confirm appropriate amount of bony resection. I then sized a # 4 tibia and once I was satisfied that there was complete tibial coverage I placed my trial and with the trial femur in place took the knee through range of motion. I was satisfied with the extension and flexion as well as the stability and balance at 0, 30 and 90 degrees. I then turned my attention to the patella where I removed 1 cm from the undersurface of the patella and then trialed a 29 a patellar button. Again the knee was taken through range of motion I was satisfied with the tracking. I then returned to the femur and drilled my femoral lug holes and prepared the tibia. A femoral bone plug was placed and the knee was irrigated copiously. I then press fit the patella, tibia and femur in standard fashion. I trialed different inserts until I selected a # 12 CR insert. The final insert was placed and a 3 minutes iodine soak with local TXA was performed. A Werewolf cautery wand was used to maintain hemostasis over the capsule and meniscal beds, the gutters and peripatellar soft tissues. The knee was then closed with a running Quill suture, a 3 0 Vicryl and tata on the skin. Patient was then placed in sterile dressing and brought to recovery room in stable condition there were no known complications.
== END 2024-05-26 11:36 | disposition home or self-care (01) ==
LOC: HO.SSS 07:22 → HO.IMC 16:29 → HO.S3 19:13
PROVIDERS: Nurse Practitioner; Physician Assistant; PCP Internal Medicine; Visit Provider Orthopaedic Surgery
PROC: (CPT 27447; principal; 2024-05-25 10:00)
DX: M17.11 Unilateral primary osteoarthritis, right knee (principal); M25.561 Pain in right knee; R26.89 Other abnormalities of gait and mobility; R26.81 Unsteadiness on feet; K90.0 Celiac disease; K21.9 Gastro-esophageal reflux disease without esophagitis; G47.33 Obstructive sleep apnea (adult) (pediatric); Z98.84 Bariatric surgery status; Z79.899 Other long term (current) drug therapy; Z87.891 Personal history of nicotine dependence; Z98.890 Other specified postprocedural states
CPT/HCPCS: 27447; 36415; 73560; 80048; 85014; 85018; 85025; 86850; 86900; 86901; 87640; 87641; 88305; 88311; 93005; 97110; 97116; 97161; C1776; J0131; J0665; J0690; J1100; J1171; J1650; J2003; J2250; J2704; J2795; J7120

== ENCOUNTER → 2024-05-25 07:22 | Outpatient (BNV) | payer BC, SELFPAY | PROVIDERS: Visit Provider Orthopaedic Surgery | DX: Z47.1 Aftercare following joint replacement surgery (principal); Z96.651 Presence of right artificial knee joint | CPT/HCPCS: 27447; 99024; G0180 ==

== ENCOUNTER 2024-06-10 10:11 | Outpatient (AMB) | payer BC, SELFPAY ==
--- NOTE | 2024-06-10 10:19 | A.OFFVIS_ITS ---
Intake Visit Reasons: 2WK PO: R TKA w/NE 05/25/24 Intake Note: Che is a 54 year old female who presents today for a post op appointment s/p right knee TKA 05/25/24 NE. Patient reports she is doing good. She mentions that her pain doesn't go more than a 5 out of 10 on the pain scale. Patient has been going to PT. Allergies gluten Allergy (Severe, Verified 06/10/24 10:21) Gastrointestinal Upset HPI HPI 2WK PO: R TKA w/NE 05/25/24: Details: 54-year-old female who presents in the office today 16 days status post right total knee arthroplasty which was performed on 05/25/[address] Freeman. While in the office today, the patient reports right knee pain. She rates her pain a 5 out of 10 on the pain scale and mentions that her pain does not exceed from that. Otherwise, she is doing well. She has been attending physical therapy. [facility] Medical History (Updated 05/16/24 @ 14:20 by Joycelyn Hess RN) Arthritis Celiac disease GERD (gastroesophageal reflux disease) LASHAE (obstructive sleep apnea) History of postoperative nausea Surgical History Hx of colonoscopy Hx of foot surgery (~1994) Hx of ventral hernia repair (~2013) Hx of bariatric surgery (~2021) Social History Household Members: Family Household Members Other:: 4 Housing: House Are you a primary pet caregiver to a significant other at home: No Do you presently have visiting nurse or other home services: No Alcohol intake: current Alcohol intake frequency: holidays/special occasions only Patient Tobacco Use Status: Former Tobacco user Tobacco use type: Cigarette service: No Current occupational status: employed Current occupation: [employer] Review of Systems Const All systems reviewed & are unremarkable except as noted in HPI and below Physical Exam Const General: cooperative, healthy appearing and no acute distress Resp Effort & Inspection: normal respiratory effort and able to speak in complete sentences Cardio Rate: regular rate Peripheral pulses: Peripheral pulses 2+ throughout GI Palpation (GI): Soft to palpation Skin Lesions: no lesions Rashes: no rashes Extrem Other: Right knee: Incision site is clean, dry, and intact. [place] intact. No surrounding erythema or drainage. No signs of infection. ROM is 10-100 degrees. NVI. Assessment & Plan Assessment & Plan (1) Status post total right knee replacement: Code(s): Z96.651 - Presence of right artificial knee joint Category: Surgical Plan Ms. Adolfo Suarez is a 54-year-old female who presents in the office today 16 days status post right total knee arthroplasty which was performed on 05/25/[address] Freeman. While in the office today, the patient reports right knee pain. She rates her pain a 5 out of 10 on the pain scale and mentions that her pain does not exceed from that. Otherwise, she is doing well. She has been attending physical therapy. Kenzie were removed and steri-strips were applied. She will transition to outpatient physical therapy next week. Follow-up will be with Dr. Freeman in 4 weeks, or sooner if needed. Patient Instructions: Scribed by Rosibel Gomez curator medical museum, for Sona Espinoza PA-C on 06/10/24 at 11:20 am EST. Coding Level of Care Code Global (37993) Diagnoses Status post total right knee replacement Z96.651
== END 2024-06-10 11:06 | disposition home or self-care (01) ==
PROVIDERS: Visit Provider Physician Assistant
DX: Z96.651 Presence of right artificial knee joint (principal)
CPT/HCPCS: 99024

== ENCOUNTER 2024-06-30 14:44 | Outpatient (AMB) | payer BC, SELFPAY ==
--- NOTE | 2024-06-30 14:46 | A.OFFVIS_ITS ---
Intake Visit Reasons: PO - R TKA 05/25/24 NE Intake Note: Che is a 54 year old female who presents today for a post op appointment s/p right knee TKA 05/25/24 NE. States she continues to attend P.T and is doing well. Reports her swelling is improving, at times feels a pinching sensation in knee. She is also having vertigo symptoms which she has had 2x in the past. Allergies gluten Allergy (Severe, Verified 06/30/24 14:53) Gastrointestinal Upset HPI HPI PO - R TKA 05/25/24 NE: Details: Che is a 54 year old female who presents today for a post op appointment s/p right knee TKA 05/25/24 NE. States she continues to attend P.T and is doing well. Reports her swelling is improving, at times feels a pinching sensation in knee. [facility] Medical History (Updated 05/16/24 @ 14:20 by Joycelyn Hess, RN) Arthritis Celiac disease GERD (gastroesophageal reflux disease) LASHAE (obstructive sleep apnea) History of postoperative nausea Surgical History Hx of colonoscopy Hx of foot surgery (~1994) Hx of ventral hernia repair (~2013) Hx of bariatric surgery (~2021) Social History Household Members: Family Household Members Other:: 4 Housing: House Are you a primary vp care management to a significant other at home: No Do you presently have visiting nurse or other home services: No Alcohol intake: current Alcohol intake frequency: holidays/special occasions only Patient Tobacco Use Status: Former Tobacco user Tobacco use type: Cigarette service: No Current occupational status: employed Current occupation: [employer] Physical Exam Extrem Other: Incision clean dry and intact Range of motion 3-120 degrees Stable arc of motion Assessment & Plan Assessment & Plan (1) Status post total right knee replacement: Code(s): Z96.651 - Presence of right artificial knee joint Category: Surgical Plan: Status post right knee replacement doing well. Continue physical therapy. Follow up 6 weeks. Coding Level of Care Code Global (36227) Diagnoses Status post total right knee replacement Z96.651
== END 2024-06-30 15:03 | disposition home or self-care (01) ==
PROVIDERS: Visit Provider Orthopaedic Surgery
DX: Z96.651 Presence of right artificial knee joint (principal)
CPT/HCPCS: 99024

== ENCOUNTER 2024-08-11 09:00 | Outpatient (REF) | payer BC, SELFPAY ==
--- NOTE | ~2024-08-11 | XR_ITS ---
EXAMINATION: XR KNEE, LEFT CLINICAL INFORMATION: M25.569 - Pain in unspecified knee COMPARISON: 05/19/2024. TECHNIQUE: AP view of the left knee. FINDINGS: Normal bone mineralization. No fracture, dislocation, or focal bony abnormality. Moderate to severe medial compartment joint space narrowing with marginal osteophytic spurring, resulting in mild varus angulation of the joint. Lateral compartment is mildly widened. Patella appears normally positioned on this limited projection. Mild spurring of the tibial spines. No discrete soft tissue abnormalities. XR/XR knee LT 1V IMPRESSION: 1. No acute findings left knee. 2. Moderate to severe medial compartment arthritis with mild resultant varus angulation of the joint. Electronically signed by: Riki Bhakta MD 08/12/2024 02:49 PM [facility]
--- NOTE | ~2024-08-11 | XR_ITS ---
EXAMINATION: XR KNEE, RIGHT CLINICAL INFORMATION: M25.569 - Pain in unspecified knee COMPARISON: 05/25/2024. TECHNIQUE: Three views of the right knee. FINDINGS: There has been a total right knee arthroplasty. Femoral, and tibial components appear intact, well seated, in anatomic alignment. Associated patellar resurfacing. No periprosthetic fracture or lucency. There is a suprapatellar joint effusion, moderate in size. Soft tissues demonstrate soft tissue swelling in venous calcifications in the superior linda region. Skin tata have been removed. XR/XR knee RT 3V IMPRESSION: 1. Post right knee total arthroplasty without definite prosthetic complication or fracture. 2. Suprapatellar joint effusion. 3. Soft tissue swelling ventral proximal linda region. Electronically signed by: Riki Bhakta MD 08/12/2024 02:53 PM [facility]
== END 2024-08-11 09:01 | disposition home or self-care (01) ==
LOC: HO.HOSX 09:00
PROVIDERS: Visit Provider Physician Assistant
DX: M25.562 Pain in left knee (principal); M25.561 Pain in right knee
CPT/HCPCS: 73560; 73562

== ENCOUNTER 2024-08-11 13:28 | Outpatient (AMB) | payer BC, SELFPAY ==
--- NOTE | 2024-08-11 13:51 | A.OFFVIS_ITS ---
Intake Visit Reasons: PO - R TKA 05/25/24 NE-6 WKS Intake Note: Che is a 54 year old female who presents today for a post op appointment s/p right knee TKA 05/25/24 NE. Patient reports she is doing well, having little to no pain. Allergies gluten Allergy (Severe, Verified 08/11/24 13:52) Gastrointestinal Upset HPI HPI PO - R TKA 05/25/24 NE-6 WKS: Details: Ms. Adolfo Suarez is a 54-year-old female who presents to the office today for three-month follow-up status post right total knee arthroplasty that was performed on 05/25/[address] Freeman. Overall the patient is doing very well and has no concerns. She reports that she still has noticed that she has some right quad weakness that she is working on. No additional complaints. [facility] Medical History (Updated 05/16/24 @ 14:20 by Joycelyn Hess RN) Arthritis Celiac disease GERD (gastroesophageal reflux disease) LASHAE (obstructive sleep apnea) History of postoperative nausea Surgical History Hx of colonoscopy Hx of foot surgery (~1994) Hx of ventral hernia repair (~2013) Hx of bariatric surgery (~2021) Social History Household Members: Family Household Members Other:: 4 Housing: House Are you a primary healthcare corporate account director to a significant other at home: No Do you presently have visiting nurse or other home services: No Alcohol intake: current Alcohol intake frequency: holidays/special occasions only Patient Tobacco Use Status: Former Tobacco user Tobacco use type: Cigarette service: No Current occupational status: employed Current occupation: [employer] Review of Systems Const All systems reviewed & are unremarkable except as noted in HPI and below Physical Exam Const General: cooperative, healthy appearing and no acute distress Resp Effort & Inspection: normal respiratory effort and able to speak in complete sentences Cardio Rate: regular rate Peripheral pulses: Peripheral pulses 2+ throughout Skin Lesions: no lesions Rashes: no rashes Extrem Other: Right knee prior surgical scar is well approximated and completely healed with no signs of infection. Range of motion is 0-120. No laxity with varus or valgus stress. NVI. Assessment & Plan Assessment & Plan (1) Status post right knee replacement: Code(s): Z96.651 - Presence of right artificial knee joint Category: Surgical Plan Ms. Adolfo Suarez is a 54-year-old female who presents to the office today for three-month follow-up status post right total knee arthroplasty that was performed on 05/25/[address] Freeman. Overall the patient is doing very well and has no concerns. She reports that she still has noticed that she has some right quad weakness that she is working on. No additional complaints. Patient can resume back to normal activities as tolerated. Continue working on glute core and quad strengthening within her home exercise program. Her follow up with Orthopedics will be in 3 months with repeat x-rays, sooner if needed. X-rays obtained of the right knee while the office today reviewed by me and are negative for any acute fracture dislocation. Intact right knee arthroplasty. Orders: Orders XR knee RT 3V Today M25.569 - Pain in unspecified knee XR knee LT 1V Today M25.569 - Pain in unspecified knee Coding Level of Care Code Global (12821) Diagnoses Status post right knee replacement Z96.651
== END 2024-08-11 14:01 | disposition home or self-care (01) ==
PROVIDERS: Visit Provider Physician Assistant
DX: Z96.651 Presence of right artificial knee joint (principal)
CPT/HCPCS: 99024

== ENCOUNTER 2024-11-15 06:36 | Outpatient (REF) | payer BC, SELFPAY ==
--- NOTE | ~2024-11-15 | XR_ITS ---
EXAMINATION: XR KNEE, RIGHT CLINICAL INFORMATION: M25.569 - Pain in unspecified knee COMPARISON: None available. TECHNIQUE: Four views of the right knee. FINDINGS: There is total knee prosthesis in satisfactory alignment. There is no periprosthetic fracture, loosening or joint effusion seen. There are no loose bodies either. Incidental finding of moderate degenerative changes medial compartment left knee with periarticular spurring. There is bilateral genu as deformity. XR/XR knee RT 3V IMPRESSION: Total right knee arthroplasty in satisfactory alignment. No visible periprosthetic fracture or loosening seen. No joint effusion. Moderate DJD left knee medial compartment.. Electronically signed by: Abdi España MD 11/16/2024 02:30 PM EDT
== END 2024-11-15 06:37 | disposition home or self-care (01) ==
LOC: HO.HOSX 06:36
PROVIDERS: Visit Provider Physician Assistant
DX: M25.561 Pain in right knee (principal)
CPT/HCPCS: 73562

== ENCOUNTER 2024-11-15 15:10 | Outpatient (AMB) | payer BC, SELFPAY ==
--- NOTE | 2024-11-15 15:18 | MHC.OFFVIS ---
Intake Visit Reasons: OV R TKA 05/25/24 NE Intake Note: Che is a 54 year old female who presents today for a post op appointment s/p right knee TKA 05/25/24 NE. At patients last visit she was instructed to continue working on glute core and quad strengthening within her home exercise program and follow up 3 months with repeat x-rays. Patient reports since her last visit her knee has been buckling, giving out and feels as if her knee will give out. Also menioned she is scared to go down a flight of stiars and is having a hard time falling asleep at night. Denies pain. Allergies gluten Allergy (Severe, Verified 11/15/24 15:22) Gastrointestinal Upset HPI HPI OV R TKA 05/25/24 NE: Details: Ms. Mata is a 54 year old female who presents to the office today s/p right knee TKA 05/25/[address] Freeman. At patients last visit she was instructed to continue working on glute core and quad strengthening within her home exercise program and follow up 3 months with repeat x-rays. Patient reports since her last visit she feels as though she has right knee weakness which causes her knee to buckle. She denies any pain. [facility] Medical History (Updated 05/16/24 @ 14:20 by Joycelyn Hess RN) Arthritis Celiac disease GERD (gastroesophageal reflux disease) LASHAE (obstructive sleep apnea) History of postoperative nausea Surgical History Hx of colonoscopy Hx of foot surgery (~1994) Hx of ventral hernia repair (~2013) Hx of bariatric surgery (~2021) Social History Household Members: Family Household Members Other:: 4 Housing: House Are you a primary healthcare insurance sales agent to a significant other at home: No Do you presently have visiting nurse or other home services: No Alcohol intake: current Alcohol intake frequency: holidays/special occasions only Patient Tobacco Use Status: Former Tobacco user Tobacco use type: Cigarette service: No Current occupational status: employed Current occupation: [employer] Review of Systems Const All systems reviewed & are unremarkable except as noted in HPI and below Physical Exam Const General: cooperative, healthy appearing and no acute distress Resp Effort & Inspection: normal respiratory effort and able to speak in complete sentences Cardio Rate: regular rate Peripheral pulses: Peripheral pulses 2+ throughout Skin Lesions: no lesions Rashes: no rashes Extrem Other: Right knee prior surgical scar is well approximated and completely healed with no signs of infection. Range of motion is 0-120. No laxity with varus or valgus stress. Negative anterior drawer. No defect over the quad tendon. NVI. Assessment & Plan Assessment & Plan (1) Status post total right knee replacement: Code(s): Z96.651 - Presence of right artificial knee joint Category: Surgical Plan Ms. Mata is a 54 year old female who presents to the office today s/p right knee TKA 05/25/[address] Freeman. At patients last visit she was instructed to continue working on glute core and quad strengthening within her home exercise program and follow up 3 months with repeat x-rays. Patient reports since her last visit she feels as though she has right knee weakness which causes her knee to buckle. She denies any pain. While in the office today, we discussed continuing to work on quad strengthening. Overall the patient is doing very well and is happy with her progress. She will follow up in 6 months, sooner if needed. X-rays of the right knee which were obtained while in the office today and were reviewed by me, Sona Espinoza PA-C, revealed intact right knee arthroplasty. Orders: Orders XR knee RT 3V 11/15/24 M25.569 - Pain in unspecified knee Coding Level of Care Code Est Pt Level 3 (17516) Diagnoses Status post total right knee replacement Z96.651
== END 2024-11-15 15:34 | disposition home or self-care (01) ==
LOC: HO.HOS 15:10
PROVIDERS: Visit Provider Physician Assistant
DX: Z47.89 Encounter for other orthopedic aftercare (principal); Z96.651 Presence of right artificial knee joint
CPT/HCPCS: 99213

== ENCOUNTER → 2024-11-15 15:14 | Outpatient (BNV) | payer BC, SELFPAY | PROVIDERS: Visit Provider Radiology Diagnostic Radiology | DX: M25.561 Pain in right knee (principal) | CPT/HCPCS: 73562 ==

== ENCOUNTER 2025-05-19 08:05 | Outpatient (REF) | payer BC, SELFPAY ==
--- NOTE | ~2025-05-19 | XR_ITS ---
EXAMINATION: XR KNEE, RIGHT CLINICAL INFORMATION: M25.569 - Pain in unspecified knee COMPARISON: November 15, 2024 TECHNIQUE: AP bilateral, sunrise, and lateral views of the right knee. FINDINGS: The left knee demonstrates moderate narrowing of medial compartment with marginal osteophytes. The right knee demonstrate changes related to total knee arthroplasty. Hardware is intact. There is no abnormal lucency at bone metal interfaces. There is anatomic alignment. There is a joint effusion. XR/XR knee RT 3V IMPRESSION: Right knee joint effusion post total knee arthroplasty. Moderate left knee osteoarthritis. Electronically signed by: Artur Gould MD 05/19/2025 11:41 AM EDT
== END 2025-05-19 08:06 | disposition home or self-care (01) ==
LOC: HO.HOSX 08:05
PROVIDERS: Visit Provider Physician Assistant
DX: M25.561 Pain in right knee (principal); Z96.651 Presence of right artificial knee joint
CPT/HCPCS: 73562

== ENCOUNTER 2025-05-19 11:23 | Outpatient (AMB) | payer BC, SELFPAY ==
--- NOTE | 2025-05-19 11:32 | A.OFFVIS_ITS ---
Intake Visit Reasons: OV R TKA 05/25/24 NE-follow up Intake Note: Che is a 55 year old female who presents today for a post op appointment s/p right knee total arthroplasty done on 05/25/24 with . At patients last visit she was advised to continue working on glute core and quad strengthening within her home exercise program. Patient reports she is doing well. She states when she is standing for a long period of time in one spot she tends to have a lot of discomfort/pain. Allergies gluten Allergy (Severe, Verified 05/19/25 11:33) Gastrointestinal Upset HPI HPI OV R TKA 05/25/24 NE-follow up: Details: Ms. Adolfo Suarez is a 55-year-old female who presents to the office today for her annual checkup status post right total knee arthroplasty performed on 05/25/[address] Freeman. Patient states that overall she is doing very well. She has no complaints at this time. She will occasionally feel some soreness with standing for long periods of time. [facility] Medical History (Updated 05/16/24 @ 14:20 by Joycelyn Hess RN) Arthritis Celiac disease GERD (gastroesophageal reflux disease) LASHAE (obstructive sleep apnea) History of postoperative nausea Surgical History Hx of colonoscopy Hx of foot surgery (~1994) Hx of ventral hernia repair (~2013) Hx of bariatric surgery (~2021) Social History Household Members: Family Household Members Other:: 4 Housing: House Are you a primary caregivers non medical to a significant other at home: No Do you presently have visiting nurse or other home services: No Alcohol intake: current Alcohol intake frequency: holidays/special occasions only Patient Tobacco Use Status: Former Tobacco user Tobacco use type: Cigarette service: No Current occupational status: employed Current occupation: [employer] Review of Systems Const All systems reviewed & are unremarkable except as noted in HPI and below Physical Exam Const General: cooperative, healthy appearing and no acute distress Resp Effort & Inspection: normal respiratory effort and able to speak in complete sentences Extrem Other: Right knee prior incision site is well approximated. There are no areas of skin breakdown. Range of motion 0-120. No varus or valgus laxity. NVI. Psych Appearance: grossly normal Mental Status: mental status grossly normal Attitude: cooperative Assessment & Plan Assessment & Plan (1) Status post total right knee replacement: Code(s): Z96.651 - Presence of right artificial knee joint Category: Surgical Plan Ms. Adolfo Suarez is a 55-year-old female who presents to the office today for her annual checkup status post right total knee arthroplasty performed on 05/25/[address] Freeman. Patient states that overall she is doing very well. She has no complaints at this time. She will occasionally feel some soreness with standing for long periods of time. While in the office today, x-rays were obtained and were reviewed by me, Sona Espinoza PA-C, and showed intact right total knee arthroplasty with satisfactory alignment. Patient will continue resuming normal activities as tolerated. She will follow up in 1 year for her annual total knee checkup, sooner if needed. Orders: Orders XR knee RT 3V Today M25.569 - Pain in unspecified knee Coding Level of Care Code Est Pt Level 3 (20483) Diagnoses Status post total right knee replacement Z96.651
== END 2025-05-19 11:46 | disposition home or self-care (01) ==
LOC: HO.HOS 11:24
PROVIDERS: Visit Provider Physician Assistant
DX: Z47.89 Encounter for other orthopedic aftercare (principal); Z96.651 Presence of right artificial knee joint
CPT/HCPCS: 99213

== ENCOUNTER → 2025-05-19 11:25 | Outpatient (BNV) | payer BC, SELFPAY | PROVIDERS: Visit Provider Radiology Diagnostic Radiology | DX: M25.569 Pain in unspecified knee (principal) | CPT/HCPCS: 73562 ==